=== PATIENT | male | born 1995 ===

== ENCOUNTER 2019-02-25 05:51 | Emergency (ER) | payer MEDICAID ==
[~2019-02-25] VITALS: Ht 167.6 cm; Wt 94.3 kg
[2019-02-25] MEDS ORDERED: ZyPREXA Zydis 10mg tab ORAL ONE (06:00)
--- NOTE | 2019-02-25 06:00 | NUR ---
ED Nurse Note: Recieved pt on [facility] with c/o depression and needs meds, pt is awake, alert and oriented x 4, ambulatory, denies pain, no cp, no sob or labored breathing, pt states takes zyprexa and out for past 5 days, pt denies suicidal or homicidal ideations, pt is very pleasant and cooperative.
[2019-02-25] MEDS ORDERED: SEROQUEL100 MG ORAL (06:01)
--- NOTE | 2019-02-25 06:02 | Emergency Room Report ---
History of Present Illness General Chief Complaint: Behavioral Complaint Source: Patient Present Illness HPI 24-year-old male history of schizoaffective, bipolar disorder presents stating that he wants to get to a fight with Denys Mouse he denies any acute SI HI he states he has been unable to get his Seroquel 300 mg at night he states that pharmacies are refusing to fill his prescription, he has Medicaid from [facility], he states he is now a resident of [place], he denies any SI HI, not hearing voices states that he just hates Denys Mouse no chest pain or shortness of breath patient presents for evaluation Allergies: Coded Allergies: No Known Allergies (Unverified , 02/25/19) Patient History Past Medical History: see triage record Social History: Reports: smoking, alcohol use, drug use - Marijuana Reviewed Nursing Documentation: PMH: Agreed; PSxH: Agreed Nursing Documentation-PMH History Of Psychiatric Problem: Yes - bipolar, schizo affective Review of Systems All Other Systems: negative except mentioned in HPI Physical Exam Vital Signs Date Time Temp Pulse Resp B/P (MAP) Pulse Ox O2 Delivery O2 Flow Rate FiO2 02/25/19 05:44 98.6 65 16 134/80 (98) 97 Room Air Sp02 EP Interpretation: reviewed, normal General Appearance: well appearing, no apparent distress, alert Head: normocephalic, atraumatic Eyes: bilateral eye PERRL, bilateral eye EOMI ENT: uvula midline, moist mucus membranes Neck: supple, thyroid normal, supple/symm/no masses Respiratory: lungs clear, no respiratory distress, no retraction, no accessory muscle use Cardiovascular #1: normal peripheral pulses, regular rate, rhythm, no edema, no gallop, no murmur Gastrointestinal: non tender, soft, no guarding, no rebound Musculoskeletal: normal inspection Neurologic: alert, oriented x3 Psychiatric: mood/affect normal, no suicidal/homicidal ideation Skin: no rash, warm/dry Medical Decision Making Diagnostic Impression: Primary Impression: Behavioral disorder Additional Impression: Schizoaffective disorder Qualified Codes: F25.0 - Schizoaffective disorder, bipolar type ER Course 24-year-old male presents requesting a refill for Seroquel, as well as resources for obtaining Medicaid, patient with no acute SI HI, patient knows where he is, states he just needs a refill for Seroquel 300 mg at night, denies any SI HI no systemic complaints, states he hates Denys Mouse. No acute emergencies at this time, patient does not show any grave disability This patient is a chronic risk of self injury due to poor impulse control, limited coping skills, and judgment intermittently impaired by intoxication. I believe that the available clinical evidence to suggest that these characteristics derived primarily from personality disorder and are likely very stable over time. Hospitalization would likely attenuate risk of self-harm only during shelter period, without lasting risk reduction. Serious self-harm , while possible, would likely be inadvertent, and because of impulsivity, and foreseeable. For these reasons, I do not believe hospitalization would provide meaningful reduction in risk of self-harm. Last Vital Signs Date Time Temp Pulse Resp B/P (MAP) Pulse Ox O2 Delivery O2 Flow Rate FiO2 02/25/19 05:44 98.6 65 16 134/80 (98) 97 Room Air Disposition: HOME, SELF-CARE Condition: Stable Scripts Quetiapine Fumarate* (SEROQUEL*) 100 Mg Tablet 100 MG ORAL THREE TIMES A DAY, #90 TAB 0 Refills Prov: Joss Jordan MD 02/25/19 [facility] Patient Instructions: Schizoaffective Disorder, Self-Destructive Behavior Additional Instructions: The patient was provided with discharge instructions, notified to follow-up with a primary care doctor and or specialist in the next 24-48 hours, and to return to the ED if they have worsening of their symptoms. Please note that this report is being documented using [employer] technology. This can lead to erroneous entry secondary to incorrect interpretation by the dictating instrument. Joss Jordan MD Feb 25, 2019 06:02
[2019-02-25 06:45] VITALS: BP 134/80
[2019-02-25 07:00] VITALS: BP 134/80
--- NOTE | 2019-02-25 07:00 | NUR ---
ER DISCHARGE NOTE: Patient is cleared to be discharged per ERMD, pt is aox4, on room air, with stable vital signs. pt was given dc and prescription instructions, pt was able to verbalize understanding, pt id band removed without complications. pt is able to ambulate with steady gait. pt took all belongings.
== END 2019-02-25 07:11 | disposition home or self-care (01) ==
LOC: EDBD 05:51 → EMR 06:12
DX: F91.9 Conduct disorder, unspecified (principal); F25.0 Schizoaffective disorder, bipolar type; F31.9 Bipolar disorder, unspecified; F17.200 Nicotine dependence, unspecified, uncomplicated
CPT/HCPCS: 99282

== ENCOUNTER 2019-02-25 13:15 | Emergency (ER) | payer MEDICAID ==
[~2019-02-25] VITALS: Ht 167.6 cm; Wt 90.7 kg
[2019-02-25 13:15] VITALS: BP 134/67
[~2019-02-25 13:15] MED LIST: SEROQUEL100 MG ORAL
--- NOTE | 2019-02-25 13:15 | NUR ---
ED Nurse Note: Patient came into the ER via ambulance with a c/o Altered Mental status. Patient stated that he was picking up his prescription and the lady at [facility] was very concerned that the patient was lethargic. Patient is a little drowsy but patient is AAOx4, on room air and patient vital signs are stable. Patient has a hx of bipolar and schizoaffective disorder. Patient denies SI, Hallucinations and DTO.
--- NOTE | 2019-02-25 13:52 | Emergency Room Report ---
History of Present Illness General Chief Complaint: Altered Mental Status Source: Patient Present Illness HPI Patient has a history of psychiatric disorder and is here from [place]. Patient took his psychiatric medications this morning. As a result has felt very sleepy a little lethargic. He was seen in emergency department where he was given the medications of Zyprexa. And then he was discharged. Patient states that he fell asleep at a [facility] therefore he was sent here for further evaluation via EMS. He feels okay except that he feels a little sleepy and hungry. Patient is currently homeless. Patient has any fever nausea vomiting diarrhea chills. No other complaints are noted. Denies any suicidal homicidal ideation at this time. Patient appear to be calm and with normal behavior. No other modifying factors. No other associated signs and symptoms. No other complaints were noted. Allergies: Coded Allergies: No Known Allergies (Unverified , 02/25/19) Patient History Past Medical History: DM Past Surgical History: none Pertinent Family History: none Social History: Denies: smoking, alcohol use, drug use Reviewed Nursing Documentation: PMH: Agreed; PSxH: Agreed Nursing Documentation-PMH Past Medical History: No History, Except For Hx Diabetes: Yes - prediabetes Review of Systems All Other Systems: negative except mentioned in HPI Physical Exam Vital Signs Date Time Temp Pulse Resp B/P (MAP) Pulse Ox O2 Delivery O2 Flow Rate FiO2 02/25/19 13:09 97.5 65 18 146/82 (103) 97 Room Air Sp02 EP Interpretation: reviewed, normal General Appearance: normal inspection, well appearing, no apparent distress, alert - But sleepy. Head: atraumatic Eyes: bilateral eye normal inspection ENT: normal ENT inspection, hearing grossly normal, normal voice Neck: normal inspection, full range of motion, supple, no bony tend Respiratory: normal inspection, lungs clear, normal breath sounds, no respiratory distress, no retraction, no wheezing Cardiovascular #1: regular rate, rhythm, no edema Gastrointestinal: normal inspection, normal bowel sounds, non tender, soft, no guarding, no hernia Genitourinary: no CVA tenderness Musculoskeletal: normal inspection, back normal, normal range of motion Neurologic: alert, responsive, speech normal, normal inspection Psychiatric: normal inspection, judgement/insight normal, mood/affect normal Skin: no rash Medical Decision Making Diagnostic Impression: Primary Impression: Altered mental status ER Course Patient presents to the emergency department today with acute altered mental status of sleepy. Differential considerations include worsening psychosis, medication side effects, alcohol or drug abuse. Patient is exam fairly benign I felt her symptoms are likely secondary to side effect from medications. However I felt the patient required laboratory work-up given that this was not performed the first time this morning. And that he is presenting now with again altered mental status. If patient's laboratory work-up is normal we will likely discharge patient. Will advise patient follow-up with outpatient. Will follow our homeless discharge protocol. I will sign case out to Dr. Grey for final disposition. Last Vital Signs Date Time Temp Pulse Resp B/P (MAP) Pulse Ox O2 Delivery O2 Flow Rate FiO2 02/25/19 13:09 97.5 65 18 146/82 (103) 97 Room Air Status: improved Disposition: HOME, SELF-CARE Condition: Stable Patient Instructions: Altered Mental Status Zbigniew Mcgrath MD Feb 25, 2019 13:52
[2019-02-25 14:11] LABS: BASOPHILS % (AUTO) 1.1 % (0.0-2.0); EOSINOPHILS % (AUTO) 2.9 % (0.0-3.0); HEMATOCRIT 41.3 % (42.0-52.0); HEMOGLOBIN 13.8 G/DL (14.2-18.0); LYMPHOCYTES % (AUTO) 28.4 % (20.0-45.0); MEAN CORPUSCULAR VOLUME 93 FL (80-99); MONOCYTES % (AUTO) 10.6 % (1.0-10.0); PLATELET COUNT 212 K/UL (150-450); RED BLOOD COUNT 4.44 M/UL (4.70-6.10); RED CELL DISTRIBUTION WIDTH 11.9 % (11.6-14.8); WHITE BLOOD COUNT 5.7 K/UL (4.8-10.8)
[2019-02-25 14:24] LABS: ANION GAP 10 mmol/L (5-15); BLOOD UREA NITROGEN 11 mg/dL (7-18); CALCIUM 8.7 MG/DL (8.5-10.1); CARBON DIOXIDE 28 MMOL/L (21-32); CHLORIDE 104 MMOL/L (98-107); CREATININE 0.8 MG/DL (0.55-1.30); POTASSIUM 3.1 MMOL/L (3.5-5.1); SODIUM 142 MMOL/L (136-145)
[2019-02-25 14:28] LABS: ALANINE AMINOTRANSFERASE 111 U/L (12-78); ALBUMIN 3.5 G/DL (3.4-5.0); ALBUMIN/GLOBULIN RATIO 1.1 (1.0-2.7); ALKALINE PHOSPHATASE 69 U/L (46-116); ASPARTATE AMINO TRANSFERASE 74 U/L (15-37); BILIRUBIN,TOTAL 0.4 MG/DL (0.2-1.0)
--- NOTE | 2019-02-25 15:30 | NUR ---
ED Nurse Note: Pt on bed, awake and sitting. Offered sandwich.
[2019-02-25 15:41] VITALS: BP 135/86
--- NOTE | 2019-02-25 18:51 | Emergency Room Report ---
Physical Exam Vital Signs Date Time Temp Pulse Resp B/P (MAP) Pulse Ox O2 Delivery O2 Flow Rate FiO2 02/25/19 13:09 97.5 65 18 146/82 (103) 97 Room Air Medical Decision Making Diagnostic Impression: Primary Impression: Altered mental status Qualified Codes: R41.82 - Altered mental status, unspecified ER Course Patient signed out to me for reassessment and follow-up on labs. K 3.1 labs otherwise unremarkable. I repleted the potassium. patient is alert oriented x3 on reassessment. No SI or HI. Homeless checklist completed. Patient given prescription for Seroquel on prior ED visit. Patient will be discharged. I will provide mental health referrals Labs Test 02/25/19 13:45 White Blood Count 5.7 K/UL (4.8-10.8) Red Blood Count 4.44 M/UL (4.70-6.10) Hemoglobin 13.8 G/DL (14.2-18.0) Hematocrit 41.3 % (42.0-52.0) Mean Corpuscular Volume 93 FL (80-99) Mean Corpuscular Hemoglobin 31.0 PG (27.0-31.0) Mean Corpuscular Hemoglobin Concent 33.3 G/DL (32.0-36.0) Red Cell Distribution Width 11.9 % (11.6-14.8) Platelet Count 212 K/UL (150-450) Mean Platelet Volume 8.2 FL (6.5-10.1) Neutrophils (%) (Auto) 57.0 % (45.0-75.0) Lymphocytes (%) (Auto) 28.4 % (20.0-45.0) Monocytes (%) (Auto) 10.6 % (1.0-10.0) Eosinophils (%) (Auto) 2.9 % (0.0-3.0) Basophils (%) (Auto) 1.1 % (0.0-2.0) Sodium Level 142 MMOL/L (136-145) Potassium Level 3.1 MMOL/L (3.5-5.1) Chloride Level 104 MMOL/L (98-107) Carbon Dioxide Level 28 MMOL/L (21-32) Anion Gap 10 mmol/L (5-15) Blood Urea Nitrogen 11 mg/dL (7-18) Creatinine 0.8 MG/DL (0.55-1.30) Estimat Glomerular Filtration Rate > 60 mL/min (>60) Glucose Level 144 MG/DL (74-106) Calcium Level 8.7 MG/DL (8.5-10.1) Total Bilirubin 0.4 MG/DL (0.2-1.0) Aspartate Amino Transf (AST/SGOT) 74 U/L (15-37) Alanine Aminotransferase (ALT/SGPT) 111 U/L (12-78) Alkaline Phosphatase 69 U/L (46-116) Total Protein 6.8 G/DL (6.4-8.2) Albumin 3.5 G/DL (3.4-5.0) Globulin 3.3 g/dL Albumin/Globulin Ratio 1.1 (1.0-2.7) Salicylates Level 1.5 ug/mL (2.8-20) Acetaminophen Level < 2 MCG/ML (10-30) Serum Alcohol < 3 mg/dL Last Vital Signs Date Time Temp Pulse Resp B/P (MAP) Pulse Ox O2 Delivery O2 Flow Rate FiO2 02/25/19 15:41 98.2 85 18 135/86 100 Room Air Status: improved Disposition: HOME, SELF-CARE Condition: Stable Referrals: [facility] Patient Instructions: Schizophrenia Chencho Grey MD Feb 25, 2019 18:51
== END 2019-02-25 15:41 | disposition home or self-care (01) ==
LOC: EDBD 13:15 → EMR 13:45
DX: R41.82 Altered mental status, unspecified (principal); R53.83 Other fatigue; E11.9 Type 2 diabetes mellitus without complications
CPT/HCPCS: 36415; 80053; 85025; G0480; G0481; Z7502; 99283; J8499